=== PATIENT | female | born 1940 | race Two or more races ===

== ENCOUNTER 2018-07-17 08:25 | Outpatient (CLI) | payer OTHER ==
[~2018-07-17 08:25] MED LIST: CATAPRES0.1 MG PO; COZAAR25 MG; TOPROL XL25 MG; VASOTEC20 MG
== END 2018-07-17 08:30 | disposition home or self-care (01) ==
LOC: LAB 08:25
DX: E11.65 Type 2 diabetes mellitus with hyperglycemia (principal); D68.8 Other specified coagulation defects; E11.21 Type 2 diabetes mellitus with diabetic nephropathy; E03.8 Other specified hypothyroidism; Z12.11 Encounter for screening for malignant neoplasm of colon

== ENCOUNTER → 2018-07-18 07:59 | Outpatient (CLI) | payer OTHER ==
[~2018-07-18 07:59] MED LIST changes: +COZAAR100 MG; +TOPROL XL50 M1
== END | disposition home or self-care (01) ==
LOC: LAB 07:59
DX: E11.65 Type 2 diabetes mellitus with hyperglycemia (principal); D68.8 Other specified coagulation defects; E11.21 Type 2 diabetes mellitus with diabetic nephropathy; E03.8 Other specified hypothyroidism; Z12.11 Encounter for screening for malignant neoplasm of colon

== ENCOUNTER 2018-07-22 08:17 | Emergency (ER) | payer OTHER ==
[~2018-07-22] VITALS: Ht 152.4 cm; Wt 61.2 kg
[~2018-07-22 08:17] MED LIST changes: -COZAAR100 MG; -TOPROL XL50 M1
[2018-07-22] MEDS ORDERED: COZAAR100 MG (08:51)
[2018-07-22] MEDS ORDERED: TOPROL XL50 M1 (08:51)
== END 2018-07-22 11:18 | disposition home or self-care (01) ==
LOC: ER 08:17 → CPU-OBS 09:10 → ER 09:10
DX: I16.0 Hypertensive urgency (principal); R07.89 Other chest pain

== ENCOUNTER 2019-08-06 07:55 | Outpatient (CLI) | payer OTHER ==
[~2019-08-06 07:55] MED LIST changes: +COZAAR100 MG; +TOPROL XL50 M1
== END 2019-08-06 08:05 | disposition home or self-care (01) ==
LOC: LAB 07:55
DX: E03.8 Other specified hypothyroidism (principal); E78.2 Mixed hyperlipidemia; D64.89 Other specified anemias

== ENCOUNTER 2019-10-31 08:23 | Outpatient (CLI) | payer OTHER | END 2019-10-31 08:38 | disposition home or self-care (01) | LOC: LAB 08:23 | DX: N39.0 Urinary tract infection, site not specified (principal) ==

== ENCOUNTER 2020-01-31 07:18 | Outpatient (CLI) | payer OTHER | END 2020-01-31 07:32 | disposition home or self-care (01) | LOC: LAB 07:18 | DX: D68.8 Other specified coagulation defects (principal); Z12.4 Encounter for screening for malignant neoplasm of cervix; D64.89 Other specified anemias; E03.8 Other specified hypothyroidism; E78.2 Mixed hyperlipidemia; E11.65 Type 2 diabetes mellitus with hyperglycemia; E11.21 Type 2 diabetes mellitus with diabetic nephropathy ==

== ENCOUNTER → 2020-07-18 | Outpatient (CLI) | payer OTHER | END | disposition home or self-care (01) | LOC: RAD 08:28 | PROVIDERS: ATTEND Specialist | DX: M16.0 Bilateral primary osteoarthritis of hip (principal) ==

== ENCOUNTER 2022-02-19 08:03 | Outpatient (CLI) | payer OTHER | END 2022-02-19 08:13 | disposition home or self-care (01) | LOC: LAB 08:03 | PROVIDERS: ATTEND Specialist | DX: E03.9 Hypothyroidism, unspecified (principal) ==

== ENCOUNTER 2022-05-28 08:08 | Outpatient (CLI) | payer OTHER | END 2022-05-28 08:09 | disposition home or self-care (01) | LOC: LAB 08:08 | PROVIDERS: ATTEND Specialist | DX: E03.9 Hypothyroidism, unspecified (principal); E11.21 Type 2 diabetes mellitus with diabetic nephropathy; D64.9 Anemia, unspecified; K75.81 Nonalcoholic steatohepatitis (NASH); N25.81 Secondary hyperparathyroidism of renal origin ==

== ENCOUNTER 2022-08-23 08:03 | Emergency (ER) | payer OTHER ==
[~2022-08-23] VITALS: Ht 154.9 cm; Wt 59.0 kg
== END 2022-08-23 12:00 | disposition home or self-care (01) ==
LOC: ER 08:03
DX: R42 Dizziness and giddiness (principal); N39.0 Urinary tract infection, site not specified; R55 Syncope and collapse; I10 Essential (primary) hypertension; E11.9 Type 2 diabetes mellitus without complications; Z88.0 Allergy status to penicillin; Z20.822 Contact with and (suspected) exposure to COVID-19

== ENCOUNTER 2023-04-06 07:07 | Outpatient (CLI) | payer OTHER | END 2023-04-06 07:08 | disposition home or self-care (01) | LOC: NUCLEAR 07:07 | PROVIDERS: ATTEND Specialist | DX: D35.1 Benign neoplasm of parathyroid gland (principal) | CPT/HCPCS: 78072; A9500 ==

== ENCOUNTER → 2024-07-03 09:15 | Outpatient (CLI) | payer OTHER ==
[2024-07-03 09:50] LABS: URINE APPEARANCE Clear; URINE BILIRRUBIN Negative (NEGATIVE); URINE BLOOD Negative; URINE COLOR Yellow; URINE GLUCOSE Negative (NEGATIVE); URINE KETONE Negative (NEGATIVE); URINE LEUKOCYTE Trace; URINE NITRATE Negative; URINE PROTEIN Negative (NEGATIVE)
[2024-07-03 09:54] LABS: URINE BACTERIA 125.9 uL (0.0-1933); URINE EPITHELIAL CELLS 3.8 uL (0.0-38.8); URINE RBC 2.5 uL (0.0-20.8); URINE WBC 40.1 uL (0.0-23.2)
[2024-07-03 10:02] LABS: CREATININE URINE RANDOM 45.9 MG/DL (30-125)
[2024-07-03 10:11] LABS: HEMATOCRIT 35.8 % (36.0-45.00); HEMOGLOBIN 12.3 g/dL (12.0-15.00); MEAN CELL VOLUME 87.8 fL (80.00-100.00); MEAN CORPUSCULAR HEMOGLOBIN 30.2 pg (27.00-32.0); MEAN CORPUSCULAR HGB CONC 34.4 g/dl (32.0-36.0); PLATELET COUNT 199 K/uL (150-450); RED BLOOD COUNT 4.07 M/uL (4.00-6.00); RED CELL DISTRIBUTION WIDTH 13.7 % (11.5-14.5)
[2024-07-03 11:02] LABS: ALBUMIN 3.8 gm/dL (3.4-5.0); BILIRUBIN TOTAL 0.9 mg/dL (0.3-1.2); CALCIUM 9.4 mg/dL (8.5-10.1); CHOL HDL RATIO 3.1 (0-5.0); CREATININE SERUM 0.83 mg/dL (0.55-1.02); FREE TRIODOTIRONINE 2.61 pg/ml (2.18-3.98); GFR 65.18; POTASSIUM 3.83 mEq/L (3.5-5.1); T4 FREE 1.19 NG/ML (0.76-1.46); TOTAL PROTEIN 6.8 gm/dL (6.4-8.2); TSH 0.529 uIU/mL (0.358-3.74)
== END | disposition home or self-care (01) ==
LOC: LAB 09:15
PROVIDERS: ATTEND Specialist
DX: E11.69 Type 2 diabetes mellitus with other specified complication (principal); E11.21 Type 2 diabetes mellitus with diabetic nephropathy; N25.81 Secondary hyperparathyroidism of renal origin; D64.89 Other specified anemias; N39.9 Disorder of urinary system, unspecified; E03.8 Other specified hypothyroidism; Z13.220 Encounter for screening for lipoid disorders

== ENCOUNTER 2025-07-02 07:23 | Outpatient (CLI) | payer OTHER ==
[2025-07-02 08:19] LABS: URINE APPEARANCE Clear; URINE BILIRRUBIN Negative (NEGATIVE); URINE BLOOD Negative; URINE COLOR Yellow; URINE GLUCOSE Negative (NEGATIVE); URINE KETONE Negative (NEGATIVE); URINE LEUKOCYTE Small; URINE NITRATE Negative; URINE PROTEIN Negative (NEGATIVE); URINE UROBILINOGEN 1.0 E.U./dl
[2025-07-02 08:23] LABS: URINE BACTERIA 21.5 uL (0.0-1933); URINE EPITHELIAL CELLS 6.4 uL (0.0-38.8); URINE RBC 4.2 uL (0.0-20.8); URINE WBC 29.1 uL (0.0-23.2)
[2025-07-02 08:37] LABS: URINE CAST 0.14 uL (0.0-1.40)
[2025-07-02 08:44] LABS: BASO % 0.8 % (0.1-1.2); EOS # 0.36 (0.04-0.54); EOS % 5.8 % (0.7-7.0); LYMPH # 1.39 (1.18-3.74); LYMPH % 22.3 % (19.3-53.1); MEAN PLATELET VOLUME 10.20 fl (9.4-12.4); MONO # 0.62 (0.24-0.82); MONO % 10.0 % (4.7-12.5); NEUT # 3.78 (1.56-6.13); NEUT % 60.8 % (34.0-71.1); RED CELL DISTRIBUTION WIDTH 13.0 % (11.6-14.4)
[2025-07-02 09:02] LABS: CREATININE URINE RANDOM 62.4 MG/DL (30-125)
[2025-07-02 09:16] LABS: ALT/SGPT 23 U/L (12-78); AST/SGOT 17 U/L (15-37); BILIRUBIN TOTAL 1.30 mg/dL (0.3-1.2); BUN CREA RATIO 32 (7.0-25.0); CHOL HDL RATIO 2.8 (0-5.0); CREATININE SERUM 0.79 mg/dL (0.55-1.02); FREE TRIODOTIRONINE 2.47 pg/ml (2.18-3.98); GFR 68.84; GLOBULINA 2.9 G/DL (2.4-3.5); GLUCOSE FASTING 116 mg/dL (65-100); HDL 54 mg/dl (40-60); LDL 67 mg/dl (0-130); OSMOLALITY SERUM 288 MOSM/KG (275-295); T4 FREE 1.14 NG/ML (0.76-1.46); TSH 1.870 uIU/mL (0.358-3.74); VLDL 27 (0-39)
[2025-07-02 15:56] LABS: ob NEGATIVE (NEGATIVE)
== END 2025-07-02 15:11 | disposition home or self-care (01) ==
LOC: LAB 07:23
PROVIDERS: ATTEND Specialist
DX: M00.80 Arthritis due to other bacteria, unspecified joint (principal); E03.8 Other specified hypothyroidism; E11.69 Type 2 diabetes mellitus with other specified complication; E11.21 Type 2 diabetes mellitus with diabetic nephropathy; D64.89 Other specified anemias; N25.81 Secondary hyperparathyroidism of renal origin; Z13.220 Encounter for screening for lipoid disorders; K92.2 Gastrointestinal hemorrhage, unspecified; Z12.11 Encounter for screening for malignant neoplasm of colon; N39.9 Disorder of urinary system, unspecified

== ENCOUNTER 2025-09-30 14:29 | Emergency (ER) | payer OTHER ==
[~2025-09-30] VITALS: Ht 154.9 cm; Wt 61.2 kg
[2025-09-30] MEDS ORDERED: CYCLOBENZAPRINE HCL 5 MG TABLET PO ONE (17:00)
[2025-09-30] MEDS ORDERED: KETOROLAC TROMETHAMINE 10 MG TABLET PO ONE (17:00)
[2025-09-30] MEDS ORDERED: CYCLOBENZAPRINE10 MG PO (18:20)
== END 2025-09-30 21:02 | disposition home or self-care (01) ==
LOC: ER 14:30
DX: M62.838 Other muscle spasm (principal); M54.50 Low back pain, unspecified; I10 Essential (primary) hypertension; E11.9 Type 2 diabetes mellitus without complications; Z88.1 Allergy status to other antibiotic agents